=== PATIENT | female | born 1990 | race Caucasian/White ===

== ENCOUNTER 2023-10-02 09:24 | Emergency (ER) | payer MEDICAID, OTHER ==
[~2023-10-02] VITALS: Ht 170.2 cm; Wt 90.9 kg
[2023-10-02 09:27] VITALS: TEMP 98.1
[2023-10-02 09:45] VITALS: BP 130/68; PULSE 68; RESP 18
[2023-10-02] MEDS: BACITRACIN 0.9 GM PACKET OINTMENT TP ONE (09:50)
[2023-10-02] MEDS: LIDOCAINE 1% 10 ML VIAL SQ ONE (09:50)
[2023-10-02] MEDS: PERTUSS(ACELL),DIPH,TET/PF 0.5 ML SYRINGE [ADULT] IM. ONE (09:51)
== END 2023-10-02 10:09 | disposition home or self-care (01) ==
LOC: EMS 09:24
DX: S61.411A Laceration without foreign body of right hand, initial encounter (principal); W26.8XXA Contact with other sharp object(s), not elsewhere classified, initial encounter; Y93.89 Activity, other specified; Y92.89 Other specified places as the place of occurrence of the external cause; Y99.8 Other external cause status
CPT/HCPCS: 99283; 90715; 90471; 12001; J3490